=== PATIENT | female | born 1945 | race Caucasian/White ===

== ENCOUNTER 2017-07-24 15:03 | Observation (INO) | payer OTHER, BC ==
[~2017-07-24] VITALS: Ht 160 cm; Wt 86.8 kg
[2017-07-24] MEDS ORDERED: LEVOTHYROXIN125 MCG PO (15:18)
[2017-07-24] MEDS ORDERED: LISINOPRIL20 M1 PO (15:18)
[2017-07-24] MEDS ORDERED: ONDANSETRON4 MG PO (16:26)
[2017-07-24] MEDS ORDERED: NORCO1 TA1 PO (16:26)
[2017-07-24] MEDS ORDERED: MOTRIN400 MG PO (16:26)
[2017-07-24 18:29] LABS: HEMATOCRIT 44.8 % (37.0-47.0); HEMOGLOBIN 14.8 g/dl (12.0-16.0); IMMATURE GRANULOCYTES 0.5 % (0.0-1.0); MEAN CELL VOLUME 95.9 fL CALC (80.0-100.0); MEAN CORPUSCULAR HGB 31.7 pG CALC (26.0-32.0); NEUT# 11.89 thou/uL (2.00-7.15); RED BLOOD COUNT 4.67 mill/uL (4.20-5.60); RED CELL DISTRI WIDTH 14.8 % (11.5-15.5)
[2017-07-24 18:49] LABS: ANION GAP 20 (6-22 (CALC)); BUN 15 mg/dL (8-23); BUN/CREATININE RATIO 23 (12-20 (CALC)); CARBON DIOXIDE 24 mmol/l (22-30); CHLORIDE 104 mmol/l (95-108); CREATININE 0.7 mg/dL (0.5-1.0); GFR > 60 ML/MIN (>=60 (CALC)); GFR FOR AFR.AMER. > 60 ML/MIN (>=60 (CALC)); POTASSIUM 4.1 mmol/l (3.5-5.1); SODIUM 144 mmol/l (137-146)
[2017-07-24 19:44] VITALS: BP 139/73
[2017-07-24 21:43] VITALS: BP 139/68
[2017-07-25 04:35] VITALS: BP 124/68
[2017-07-25 07:36] VITALS: BP 108/59
[2017-07-25 15:08] VITALS: BP 140/64
[2017-07-25 19:00] VITALS: BP 120/68
[2017-07-26 04:28] VITALS: BP 128/90
[2017-07-26 05:09] LABS: IMMATURE GRANULOCYTES 0.5 % (0.0-1.0); MEAN CELL VOLUME 95.8 fL CALC (80.0-100.0); MEAN CORPUSCULAR HGB 31.7 pG CALC (26.0-32.0); MEAN CORPUSCULAR HGB CONC 33.1 g/L CALC (32.0-36.0); NEUT# 6.41 thou/uL (2.00-7.15); RED BLOOD COUNT 4.01 mill/uL (4.20-5.60); RED CELL DISTRI WIDTH 14.6 % (11.5-15.5)
[2017-07-26 05:13] LABS: HEMATOCRIT 38.4 % (37.0-47.0); HEMOGLOBIN 12.7 g/dl (12.0-16.0)
[2017-07-26 06:17] LABS: ANION GAP 17 (6-22 (CALC)); BUN 15 mg/dL (8-23); BUN/CREATININE RATIO 25 (12-20 (CALC)); CARBON DIOXIDE 22 mmol/l (22-30); CHLORIDE 105 mmol/l (95-108); CREATININE 0.6 mg/dL (0.5-1.0); GFR > 60 ML/MIN (>=60 (CALC)); GFR FOR AFR.AMER. > 60 ML/MIN (>=60 (CALC)); POTASSIUM 3.9 mmol/l (3.5-5.1); SODIUM 140 mmol/l (137-146)
[2017-07-26 08:26] VITALS: BP 134/54
[2017-07-26 15:40] LABS: URINE BILIRUBIN - DIPSTICK NEGATIVE (NEGATIVE); URINE BLOOD DIPSTICK SMALL (NEGATIVE); URINE COLOR YELLOW; URINE GLUCOSE - DIPSTICK NEGATIVE (NEGATIVE); URINE KETONE NEGATIVE (NEGATIVE); URINE LEUK ESTERASE NEGATIVE (Negative); URINE NITRITE - DIPSTICK NEGATIVE (Negative); URINE PROTEIN - DIPSTICK NEGATIVE (NEG-TRACE); URINE SPECIFIC GRAVITY >=1.030; URINE UROBILINOGEN - DIPSTICK 0.2 E.U./dL (0.2)
[2017-07-26 15:49] VITALS: BP 116/60
[2017-07-26 15:54] LABS: URINE CLARITY CLEAR
[2017-07-26 16:15] LABS: URINE CALCIUM OXALATE CRYSTALS MODERATE lpf; URINE SQUAMOUS EPITHELIAL CELL FEW EPI/hpf (0-FEW)
[2017-07-26 19:33] VITALS: BP 117/65
[2017-07-27 04:49] VITALS: BP 133/71
[2017-07-27 08:00] VITALS: BP 120/62
[2017-07-27] MEDS ORDERED: CYCLOBENZAPR5 MG PO (10:17)
[2017-07-27] MEDS ORDERED: NORCO1 TA1 PO (10:17)
[2017-07-27] MEDS ORDERED: ASPIRIN EC325 MG PO (10:17)
[2017-07-27 11:15] VITALS: BP 149/68
[2017-07-27] MEDS ORDERED: PEPCID40 MG PO (15:16)
[2017-07-27 16:18] VITALS: BP 112/76
== END 2017-07-27 18:26 | disposition home or self-care (01) | DRG 563 ==
LOC: ED 15:03 → ED-I 17:26 → ED 19:01 → MS2 19:02
PROVIDERS: Family Medicine; Nurse Practitioner Family; ADMIT Internal Medicine; ATTEND Internal Medicine
DX: S82.001A Unspecified fracture of right patella, initial encounter for closed fracture (principal); E89.0 Postprocedural hypothyroidism; I10 Essential (primary) hypertension; S80.212A Abrasion, left knee, initial encounter; W01.0XXA Fall on same level from slipping, tripping and stumbling without subsequent striking against object, initial encounter; Y92.520 Airport as the place of occurrence of the external cause; M62.838 Other muscle spasm; M17.11 Unilateral primary osteoarthritis, right knee; Y93.89 Activity, other specified; Y99.0 Civilian activity done for income or pay
CPT/HCPCS: G0378; J1650